=== PATIENT | male | born 2000 | race African-American/Black ===

== ENCOUNTER 2019-03-15 15:49 | Emergency (ER) | payer OTHER ==
[2019-03-15 16:24] VITALS: BP 148/84
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
[2019-03-15] MEDS ORDERED: IBUPROFEN 600 MG TABLET PO STA (17:29)
[2019-03-15] MEDS ORDERED: ACETAMINOPHEN 325 MG TABLET PO STA (17:29)
[2019-03-15] MEDS ORDERED: METHOCARBAMOL 500 MG TABLET PO STA (19:53)
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
== END 2019-03-15 20:24 | disposition home or self-care (01) ==
LOC: ED 15:49
DX: S16.1XXA Strain of muscle, fascia and tendon at neck level, initial encounter (principal); S39.012A Strain of muscle, fascia and tendon of lower back, initial encounter; S80.00XA Contusion of unspecified knee, initial encounter; V43.52XA Car driver injured in collision with other type car in traffic accident, initial encounter; Y92.410 Unspecified street and highway as the place of occurrence of the external cause
CPT/HCPCS: 72040; 72100; 99284; A9270

== ENCOUNTER 2019-04-01 08:25 | Emergency (ER) | payer OTHER ==
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
--- NOTE | 2019-04-01 10:04 | XRAY Report ---
Reason: contusion pre-patellar pain Procedure Date: 04/01/2019 Accession Number: [id number] / [id number] Procedure: XR - Knee 4 View RT CPT Code: FULL RESULT: EXAM: RIGHT KNEE RADIOGRAPHY EXAM DATE: 04/01/2019 09:31 AM HISTORY: contusion pre-patellar pain COMPARISON: None TECHNIQUE: AP, bilateral obliques, lateral and merchant views . FINDINGS: No fracture, lytic or sclerotic bone lesion. No arthritis. No joint effusion. Normal soft tissues. IMPRESSION: Normal knee radiography. [facility]
[2019-04-01] MEDS ORDERED: DEXAMETHASONE 10 MG/ML VIAL PO STA (10:19)
[2019-04-01] MEDS ORDERED: CHERRY SYRUP 10 ML UDC PO ONE (10:19)
[2019-04-01 10:27] VITALS: BP 113/78
== END 2019-04-01 10:36 | disposition home or self-care (01) ==
LOC: ED 08:25
DX: M76.51 Patellar tendinitis, right knee (principal); S80.01XA Contusion of right knee, initial encounter; S80.11XA Contusion of right lower leg, initial encounter; V49.9XXA Car occupant (driver) (passenger) injured in unspecified traffic accident, initial encounter; Y92.410 Unspecified street and highway as the place of occurrence of the external cause
CPT/HCPCS: 73564; 99283; 99284; A9270